=== PATIENT | male | born 1970 | race Two or more races ===

== ENCOUNTER 2018-02-17 19:38 | Emergency (ER) | payer BC ==
[~2018-02-17] VITALS: Ht 185.4 cm; Wt 103.4 kg
[2018-02-17 19:50] VITALS: BP 159/97
--- NOTE | 2018-02-17 20:15 | Emergency Room Report ---
History of Present Illness General Chief Complaint: General Complaint Source: Patient Present Illness HPI 47 YO Male presents to the ED c/o hemorrhoid and 4/10 in severity discomfort in the rectal area x 1 week. Denies BRBPR ,bloody stools or dark tarry stools , constipation, diarrhea or rectal trauma. 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 denies fevers or chills, abdominal pain or tenderness. Allergies: Coded Allergies: No Known Allergies (Unverified , 02/17/18) Patient History Past Medical History: see triage record Past Surgical History: none Pertinent Family History: none Reviewed Nursing Documentation: PMH: Agreed; PSxH: Agreed Nursing Documentation-PMH Past Medical History: No Stated History Review of Systems All Other Systems: negative except mentioned in HPI Physical Exam Vital Signs Date Time Temp Pulse Resp B/P (MAP) Pulse Ox O2 Delivery O2 Flow Rate FiO2 02/17/18 19:45 98.1 80 16 159/97 97 Room Air 98.1 Sp02 EP Interpretation: reviewed, normal General Appearance: no apparent distress, alert, GCS 15, non-toxic Head: normocephalic, atraumatic ENT: hearing grossly normal, normal voice Neck: full range of motion Respiratory: lungs clear, normal breath sounds, speaking full sentences Cardiovascular #1: regular rate, rhythm Gastrointestinal: normal bowel sounds, non tender, soft Rectal: deferred, hemorrhoids - in the 3 O 'clock thrombosed but not erythematous, not reducible. Musculoskeletal: back normal, gait/station normal, normal range of motion Neurologic: alert, oriented x3, responsive, motor strength/tone normal, sensory intact, speech normal, grossly normal Psychiatric: judgement/insight normal Skin: normal color, no rash, warm/dry, well hydrated Medical Decision Making PA Attestation Dr. philip is my supervising Physician whom patient management has been discussed with. Diagnostic Impression: Primary Impression: Acute hemorrhoid ER Course 47 YO Male presents to the ED c/o hemorrhoid and 4/10 in severity discomfort in the rectal area x 1 week. Denies BRBPR ,bloody stools or dark tarry stools , constipation, diarrhea or rectal trauma. 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 denies fevers or chills, abdominal pain or tenderness. Ddx considered but are not limited to constipation , anal fissure, perianal abscess, rectal wall tear, thrombosed hemorrhoid, hemorrhoid. 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 H&PE are most consistent with hemorrhoid , secondary to straining. bowl sounds are normo active. - not reducible, does not appear to be thrombosed. ORDERS: none required at this time ED INTERVENTIONS: - Discussed the patient's self care interventions for hemorrhoids DISCHARGE: At this time pt. is stable for d/c to home. Will provide printed patient care instructions, and any necessary prescriptions. Care plan and follow up instructions have been discussed with the patient prior to discharge. Last Vital Signs Date Time Temp Pulse Resp B/P (MAP) Pulse Ox O2 Delivery O2 Flow Rate FiO2 02/17/18 19:50 98.1 80 16 159/97 97 Room Air 98.1 Disposition: HOME, SELF-CARE Condition: Stable Scripts Docusate Sodium* (COLACE*) 100 Mg Capsule 100 MG ORAL THREE TIMES A DAY, #30 CAP Prov: Stella Charlton 02/17/18 Ibuprofen* (MOTRIN*) 600 Mg Tablet 600 MG ORAL THREE TIMES A DAY, #20 TAB 0 Refills Prov: Stella Charlton 02/17/18 Hydrocodone Bit/Acetaminophen 5-325* (NORCO 5-325*) 1 Each Tablet 1 TAB ORAL Q6H PRN for For Pain, #10 TAB 0 Refills Prov: Stella Charlton 02/17/18 Hydrocortisone Hc 2.5% Cream (ANUSOL-HC 2.5% CREAM) Y Cr 1 APPLIC RC BID, #30 GM Prov: Stella Charlton 02/17/18 Departure Forms: Return to Work Return to Work Date: Feb 21, 2018 Work Restrictions: No Heavy Lifting Other Restrictions: light duty x 1 week upon return. Return to Full Activity: Feb 28, 2018 Patient Instructions: Hemorrhoids Additional Instructions: Take medications as directed. Follow up with a Primary Care Provider in 3-5 days, even if your symptoms have resolved. --Please review list of primary care clinics, if you do not already have a primary care provider Return sooner to ED if new symptoms occur, or current symptoms become worse. Do not drink alcohol, drive, or operate heavy machinery while taking [place] as this may cause drowsiness. - Please note that this Emergency Department Report was dictated using [employer]maintenance controller technology software, occasionally this can lead to erroneous entry secondary to interpretation by the dictation equipment. Stella Charlton Feb 17, 2018 20:15
[2018-02-17] MEDS ORDERED: NORCO 5-325 TA1 EACH ORAL (20:17)
[2018-02-17] MEDS ORDERED: ANUSOL-HC30 GM RC (20:17)
[2018-02-17] MEDS ORDERED: IBUPROFEN600 MG ORAL (20:17)
[2018-02-17] MEDS ORDERED: COLACE100 MG ORAL (20:17)
== END 2018-02-17 20:15 | disposition home or self-care (01) ==
LOC: EMR 20:00
DX: K64.5 Perianal venous thrombosis (principal)
CPT/HCPCS: 99284